=== PATIENT | female | born 1985 | race Asian ===

== ENCOUNTER 2017-04-11 23:20 | Inpatient (IN) | payer SELFPAY ==
[~2017-04-11] VITALS: Ht 168 cm; Wt 78.0 kg
[2017-04-11] MEDS ORDERED: LACTATED RINGERS 1,000 ML IV SCH (23:36)
[2017-04-11] MEDS ORDERED: LIDOCAINE 1% 500 MG/50 ML VIAL INJ SCH (23:40)
[2017-04-11] MEDS ORDERED: CARBOPROST 250 MCG/ML AMP IM PRN (23:40)
[2017-04-11] MEDS ORDERED: AMPICILLIN 2,000 MG in NACL 0.9% MINI-BAG PLUS 100 ML IV SCH (23:40)
[2017-04-11] MEDS ORDERED: NALBUPHINE HYDROCHLORIDE 10 MG/ML VIAL IVP PRN (23:40)
[2017-04-11] MEDS ORDERED: OXYTOCIN 20 UNITS in LACTATED RINGERS 1,000 ML IV SCH (23:40)
[2017-04-11] MEDS ORDERED: PROMETHAZINE 25 MG/ML VIAL IVP PRN (23:40)
[2017-04-11] MEDS ORDERED: METHYLERGONOVINE 0.2 MG/ML AMP IM PRN (23:40)
[2017-04-11] MEDS ORDERED: OXYTOCIN 10 UNITS/ML VIAL IM SCH (23:40)
[2017-04-11] MEDS ORDERED: AMPICILLIN 2,000 MG VIAL ONE (23:44)
[2017-04-11] MEDS ORDERED: OXYTOCIN 10 UNITS/ML VIAL ONE (23:49)
[2017-04-11] MEDS ORDERED: OXYTOCIN 20 UNITS/LR PREMIX 1,000 ML IV ONE (23:49)
[2017-04-11] MEDS ORDERED: LIDOCAINE 1% 50 ML ONE (23:52)
[2017-04-12] MEDS ORDERED: HYDROcodone/APAP 5/325 MG 1 TAB TAB PO PRN (00:10)
[2017-04-12] MEDS ORDERED: METHYLERGONOVINE 0.2 MG/ML AMP IM PRN (00:10)
[2017-04-12] MEDS ORDERED: TEMAZEPAM 15 MG CAP PO PRN (00:10)
[2017-04-12] MEDS ORDERED: MEASLES, MUMPS, AND RUBELLA 1 VIAL SQVAC PRN (00:10)
[2017-04-12] MEDS ORDERED: BENZOCAINE/MENTHOL 20%-0.5% 60 GM CAN TP PRN (00:10)
[2017-04-12] MEDS ORDERED: oxyCODONE/APAP 5/325 MG 1 TAB TAB PO PRN (00:10)
[2017-04-12] MEDS ORDERED: IBUPROFEN 800 MG TAB PO PRN (00:10)
[2017-04-12] MEDS ORDERED: OXYTOCIN 10 UNITS/ML VIAL IM PRN (00:10)
[2017-04-12 00:53] LABS: HEMATOCRIT 44.7 % (36-48); HEMOGLOBIN 14.8 g/dL (12.0-16.0); MEAN CORPUSCULAR HEMOGLOBIN 32 pg (27-31); MEAN CORPUSCULAR HGB CONC 33 g/dL (33-37); MEAN CORPUSCULAR VOLUME 98 fL (80-94); PLATELET COUNT (AUTO) 203 K/uL (140-450); RED BLOOD CELL COUNT(AUTO) 4.58 MIL/uL (4.20-5.40); RED CELL DISTRIBUTION WIDTH 14.4 % (11.6-13.7); WHITE BLOOD COUNT (AUTO) 12.6 K/uL (4.8-10.8)
[2017-04-12 01:12] LABS: LYMPHOCYTES % (MANUAL) 12 % (20-46); MONOCYTES % (MANUAL) 2 % (5-12)
[2017-04-12 01:35] LABS: ANION GAP 14.8 (8-16); CARBON DIOXIDE 20.4 mmol/L (21-32); CREATININE 0.7 mg/dL (0.6-1.3); POTASSIUM 3.2 mmol/L (3.5-5.1)
[2017-04-12 01:42] LABS: ALBUMIN 2.6 g/dL (3.4-5.0); TOTAL BILIRUBIN 0.4 mg/dL (0.0-1.0)
[2017-04-12 01:48] VITALS: BP 125/74
[2017-04-12] MEDS ORDERED: PREN-546 PO (01:51)
[2017-04-12] MEDS ORDERED: FERR325E14 PO (01:52)
[2017-04-12 03:23] LABS: APPEARANCE,URINE TURBID (CLEAR); BILIRUBIN,URINE NEGATIVE (NEGATIVE); BLOOD, URINE 3+ (NEGATIVE); COLOR,URINE RED (YELLOW); LEUKOCYTE ESTERASE ,URINE NEGATIVE (NEGATIVE); NITRITE, URINE NEGATIVE (NEGATIVE); PH,URINE 8.5 (5.0-9.0); UGLUCOSE NEGATIVE (NEGATIVE)
[2017-04-12 03:40] LABS: RBC,URINE TOO NUMEROUS TO COUN /HPF (0-5); WBC,URINE 0-5 (RARE) /HPF (0-5)
[2017-04-12] MEDS ORDERED: AMPICILLIN 1,000 MG in NACL 0.9% MINI-BAG PLUS 50 ML IV SCH (04:00)
[2017-04-12] MEDS ORDERED: INFLUENZA VIRUS VACCINE QUAD 0.5 ML SYR IMVAC SCH (04:18)
[2017-04-12] MEDS ORDERED: AMMONIA AROMATIC 1 INHL INH ONE (06:51)
--- NOTE | 2017-04-12 09:56 | NUR ---
PATIENT HAS BEEN SCREENED AND CATEGORIZED LOW NUTRITION RISK. PATIENT WILL BE SEEN WITHIN 7 DAYS OF ADMISSION. 04/18/[address]
[2017-04-12] MEDS ORDERED: DOCUSATE SOD/SENNA 50/8.6 MG 1 TAB PO SCH (21:00)
[2017-04-13 05:22] LABS: HEMATOCRIT 39.6 % (36-48); HEMOGLOBIN 13.3 g/dL (12.0-16.0)
--- NOTE | 2017-04-13 08:08 | NUR ---
PATIENT HAS BEEN SCREENED AND CATEGORIZED LOW NUTRITION RISK. PATIENT WILL BE SEEN WITHIN 7 DAYS OF ADMISSION. 04/19/[address]
[2017-04-13] MEDS ORDERED: IBUP-2218 PO (09:15)
== END 2017-04-13 14:20 | disposition home or self-care (01) | DRG 775 ==
LOC: MLD 23:20 → MFCC 04-12 03:05
PROVIDERS: ADMIT Obstetrics & Gynecology; ATTEND Obstetrics & Gynecology
PROC: 10E0XZZ Delivery of Products of Conception, External Approach (ICD-10-PCS; principal; 2017-04-11)
PROC: 10907ZC Drainage of Amniotic Fluid, Therapeutic from Products of Conception, Via Natural or Artificial Opening (ICD-10-PCS; 2017-04-11)
PROC: 0W8NXZZ Division of Female Perineum, External Approach (ICD-10-PCS; 2017-04-11)
DX: O69.81X0 Labor and delivery complicated by cord around neck, without compression, not applicable or unspecified (principal); Z37.0 Single live birth; Z3A.38 38 weeks gestation of pregnancy
CPT/HCPCS: 36415; 59409; 80053; 81001; 85018; 85025; 86592; 86762; 86886; 86900; 86901; 87340; 90658; 90715; J0290; J2001; J2590; J7120